=== PATIENT | male | born 1990 | race Two or more races ===

== ENCOUNTER 2023-12-27 00:31 | Emergency (ER) | payer MEDICAID, OTHER ==
[~2023-12-27] VITALS: Ht 167.6 cm; Wt 97.0 kg
[2023-12-27] MEDS ORDERED: AMOX500T3 PO (03:54)
[2023-12-27] MEDS: KETOROLAC TROMETH 30 MG/ML 1ML VIAL IM ONE (04:10)
[2023-12-27] MEDS: DexAMETHasone SOD PHOS 10MG/1ML VIAL INJ IM ONE (04:11)
[2023-12-27 05:00] VITALS: BP 138/88; PULSE 85; RESP 16; TEMP 97.2; O2SAT 99
== END 2023-12-27 05:17 | disposition home or self-care (01) ==
LOC: ER 00:31
DX: J03.90 Acute tonsillitis, unspecified (principal); Z88.2 Allergy status to sulfonamides
CPT/HCPCS: 96372; 99284; J1100; J1885